=== PATIENT | female | born 1945 | race Caucasian/White ===

== ENCOUNTER → 2020-09-18 | Outpatient (CLI) | payer OTHER, BC ==
[~2020-09-18] VITALS: Ht 160 cm; Wt 49.0 kg
[~2020-09-18] MED LIST: CANDICIDAL CAP1 EACH PO; COQ-10100 MG PO; CRESTOR10 MG PO; D3-501250 MCG PO; HAWTHORN150 MG PO; LEVOTHYROXIN0.088 MG PO; TEKTURNA150 MG PO; TYLENOL EXTRA500 MG PO; VITAMIN K100 MCG PO
--- NOTE | 2020-09-18 08:59 | EKG ---
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: FSCHWALBE : 1945 Requested By: Ronaldo Martin Order Number: [id number] MD: Matthew Patrick Measurements Intervals [place] Rate: 71 P: 65 CO: 157 QRS: -12 QRSD: 109 T: -34 QT: 428 QTc: 466 Interpretive Statements Sinus rhythm Probable left ventricular hypertrophy Inferior infarct, age indeterminate Baseline wander in lead(s) V4 No previous ECG available for comparison Electronically Signed On 09-18-2020 8:58:52 CDT by Matthew Patrcik [email or web address] <ELECTRONICALLY SIGNED> By: Matthew Patrick MD, MERGED WITH [facility] 09/18/20 0858 0836 5 Matthew Patrick MD, FACC /EPI
[2020-09-18 09:00] LABS: HEMOGLOBIN 14.1 gm/dL (12.0-15.0); MCHC 33.5 g/dL (28.0-37.0); MCV 89.5 fL (80.0-100.0); RBC 4.7 mil/uL (4.20-5.00); RDW 13.9 % (10.5-14.5); WBC 6.1 thou/uL (4.0-11.0)
[2020-09-18 09:09] VITALS: BP 140/80
[2020-09-18 09:17] LABS: CALCIUM 9.2 mg/dL (8.5-10.1); CREATININE 0.6 mg/dL (0.6-1.0); POTASSIUM 3.3 mmol/L (3.5-5.1)
--- NOTE | 2020-09-18 15:19 | NUR ---
1045-PER DR SOUZA, PT TO GET UP IN ONE HOUR POST HEMOSTASIS AND GET UP FOR ONE HOUR, THEN HOME.
--- NOTE | 2020-09-19 09:37 | CATHLAB ---
[facility] [address] [address] INVASIVE PROCEDURE REPORT Name: VANDANA VILLEDA Stephen Room #: REG CHRISTINA Benji#: [id number] Admission: 09/18/20 Attend Phys: Ronaldo Martin Discharge: Date of : 45 Report #: [id number] THIS REPORT FOR: cc: Juan Peguero MD, Andrea A. MD Lammoglia, Francisco J. 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, Mack Choe RTR Monitor, Lisbeth Benavides RTR, Vasiliy Segundo Marie RN RN, Crystal Wong RTR Machine Spring Former Procedures Performed Art Access - R femoral artery* Left Heart Cath w/or w/o Coronaries [id number] [facility] FFR [id number] FFR 81214 Initial Mod Sed Same Phys/QHP Gr5y 687889 05413 Mod Sed Same Phys/QHP Ea 115325 Hemostasis w/ Mynx, supervision of conscious sedation Indication Positive stress test, Pre-op clearance, Evidence of myocardial infarction are noninvasive work-up Procedure Narrative The Right Groin^ was infiltrated with 1% Lidocaine subcutaneous anesthesia. A PINNACLE 4FR Sheath #[id number] sheath was inserted into the RFA^. Coronary angiography was performed using coronary diagnostic catheters. The right coronary system was accessed and visualized with a JR4 catheter. The left coronary system was accessed and visualized with a JL4 catheter. The left ventricle was accessed and visualized with a PIGTAIL catheter. Left ventricular/Aortic Valve gradient assessed via catheter pullback. Closure device was deployed with a 6 Fr MYNXGRIP. Hemostasis was obtained with manual pressure following sheath removal without any complications. The patient tolerated the procedure well and there were no complications associated with the procedure. There was no hematoma. Intraoperative Conscious Sedation [facility] [address] [place] [address] INVASIVE PROCEDURE REPORT Name: CHRISTIANAVANDANA R Room #: REG [facility] [id number] Admission: 09/18/20 Attend Phys: Ronaldo Morrow Discharge: Date of : 45 Report #: [id number] Sedation start time: 1011 Case end Time: 1055 Versed 1 mg Fluoro Time: 4.90 minutes Dose: DAP 2372.70 cGycm2 370 mGy Contrast Type and Amount: Omnipaque 55 ml Coronary Angiography The patient's coronary anatomy is right dominant. Diagnostic Cath Left Main Large-caliber vessel normal origin bifurcates left into descending left circumflex free of high-grade disease. There is evidence of epicardial calcifications noted. LAD Moderate to large caliber type III vessel which courses in the interventricular sulcus. None the proximal portion of the mid LAD there is a eccentric lesion which appears to be calcified and in 1 view is suggestive of a linear dissection which is present. This appears to be more of a eccentric plaque on other views. The LAD then continues distally tapering towards the apex with only mild plaquing identified. In this course in the anterior interventricular sulcus septal diagonal branches originate. Distal collaterals to the right coronary vessel are noted Diagonal 1 Small caliber bifurcating vessel without high-grade disease Circumflex Moderate caliber nondominant vessel which in its proximal course gives rise to a large posterior circulation branch without obvious AVM presents. It then continues on gives rise to a small marginal branch which is tortuous in its course on the lateral aspect of the heart without high-grade lesions. It terminates as a marginal branch. These marginal branches all send collaterals to the distal right coronary artery Right Coronary Completely occluded in the midportion of the proximal segment of the RCA. The RCA is a small caliber vessel. The distal circulation fills via a left to right collaterals and involves posterior lateral branch and posterior descending arteries which is small in caliber but free of high-grade disease R PDA Diminutive size vessel filling via collaterals Left Ventriculography Left Ventriculography was not performed. IVUS Fractional Flow [place] was performed on the Proximal mid left anterior descending vessel. A 6 Faroese JL4 Guide Catheter was used to [address] [address] INVASIVE PROCEDURE REPORT Name: VANDANA VILLEDA Room #: REG BAL Leblanc#: [id number] Admission: 09/18/20 Attend Phys: Ronaldo Morrow Discharge: Date of : 45 Report #: [id number] engage the Left coronary ostium. A FFR wire was used. Hemodynamics The aortic pressure is 161/89 mmHg with a mean of 75 mmHg. The left ventricular pressure is 173/32 mmHg with a mean of mmHg. The left ventricular end diastolic pressure is 54 mmHg. Pullback from the left ventricle to the aorta revealed a mm gradient across the aortic valve. FFR measurement was 0.94. PCI Technique Lesion The lesion stenosis prior to intervention was Proximal mid left anterior descending% with MOE 6 Faroese JL4 flow. A Left coronary Guide Catheter was used to engage the ostium. A FFR wire Interventional Guidewire was used to cross the lesion. Conclusion 1. Coronary artery disease totally occluded right coronary artery will collateralized from left to right moderate left anterior descending lesion which is not flow-limiting 2. Abnormal hemodynamics elevated low ventricular end-diastolic pressures 3. Nonsignificant IFR of the left anterior descending artery at 0.94 Recommendations Cardiac Risk Reduction Program Medical Therapy <ELECTRONICALLY SIGNED> By: Ronaldo Martin MD 09/19/20935 5 5 Ronaldo Martin MD /INF
== END | disposition home or self-care (01) ==
LOC: CATH 07:32
PROVIDERS: ATTEND Internal Medicine
DX: R94.39 Abnormal result of other cardiovascular function study (principal); I25.10 Atherosclerotic heart disease of native coronary artery without angina pectoris; I25.2 Old myocardial infarction; I25.82 Chronic total occlusion of coronary artery; I10 Essential (primary) hypertension; E78.5 Hyperlipidemia, unspecified; E05.90 Thyrotoxicosis, unspecified without thyrotoxic crisis or storm; Z82.49 Family history of ischemic heart disease and other diseases of the circulatory system; Z98.890 Other specified postprocedural states; Z79.899 Other long term (current) drug therapy; Z88.8 Allergy status to other drugs, medicaments and biological substances

== ENCOUNTER → 2020-11-19 | Outpatient (CLI) | payer OTHER, BC | LOC: SJCVC 10:44 | PROVIDERS: ATTEND Internal Medicine | DX: R94.31 Abnormal electrocardiogram [ECG] [EKG] (principal); I25.10 Atherosclerotic heart disease of native coronary artery without angina pectoris; E78.00 Pure hypercholesterolemia, unspecified; I10 Essential (primary) hypertension; E78.5 Hyperlipidemia, unspecified; Z78.9 Other specified health status; Z88.8 Allergy status to other drugs, medicaments and biological substances; Z79.899 Other long term (current) drug therapy; Z82.49 Family history of ischemic heart disease and other diseases of the circulatory system ==